=== PATIENT | male | born 1965 | race Caucasian/White ===

== ENCOUNTER → 2016-08-19 | Outpatient (CLI) | payer BC ==
[~2016-08-19] MED LIST: IOHEXOL 350 MG/ML 75ml INJECTION ONE; NORMAL SALINE 100 ML ONE; SALINE FLUSH 10ml SYRINGE ONE
--- NOTE | 2016-08-19 16:09 | DI ---
Indication: ITS.REASON: R51 HEADACHE PROCEDURE: CTA HEAD W/WO CONTRAST: Encounter: Initial Comparison: None Technique: CT Head: Axial images were obtained through the head without and with intravenous contrast. CTA: Angiographic phase axial images were acquired through the entire head following intravenous contrast administration. Multiplanar 2-D reconstructions and maximum intensity projection images were produced for additional assessment. 3-D volume rendered images of the [place] were also produced by the technologist. Automated Exposure Control and Iterative Reconstruction dose reducing techniques were utilized. Findings: CT head without and with contrast: The ventricles are of normal size, shape, and contour for the patient's age. The brainstem, cerebellum, and cerebral hemispheres have a normal morphology and CT attenuation. No hemorrhage, mass effect, mass lesions, or edema is evident.No areas of abnormal enhancement are seen. The visualized portions of the skull base, and calvarium demonstrate no acute abnormality. Evidence of old trauma with prior repair of a right orbital floor fracture and chronic appearing bony thickening in the right maxillary sinus with mucosal thickening as well. The remaining paranasal sinuses are clear. The mastoid air cells are clear. CTA head with intravenous contrast: The distal cervical, petrous, cavernous, and supraclinoid segments of the internal carotid arteries are widely patent without significant stenosis or other vascular abnormalities. The anterior, middle, and posterior cerebral arteries are also widely patent without significant stenosis or occlusion. No aneurysms, vascular malformations, flow-limiting stenoses, or other arterial abnormality are evident. The visualized portion of the dural sinuses and cortical veins are also well seen and show no definite stenosis or occlusion. Impression: 1. CT head with and without contrast: No acute intracranial abnormality or hemorrhage. 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 2. CTA head: Normal exam. .
== END ==
LOC: IMA 15:18
PROVIDERS: ATTEND Family Medicine
DX: J34.89 Other specified disorders of nose and nasal sinuses (principal); R51 Headache
CPT/HCPCS: 70496; J7050; Q9967